=== PATIENT | male | born 1970 | race Caucasian/White ===

== ENCOUNTER 2020-03-03 16:03 | Emergency (ER) | payer MEDICARE, OTHER ==
[~2020-03-03 16:03] MED LIST: AUGMENTIN 875-1 EACH PO; BACTRIM DS TAB1 EACH PO; BENTYL 20MG TAB20 MG PO; FUROSEMIDE20 MG PO; HYDROCODON-ACE1 EAC4 PO; IBU800 MG PO; METOPROLOL SUCC50 MG PO; MONTELUKAST SOD10 MG PO; PERCOCET 5-3251 EACH PO; ULTRAM50 MG PO; VISTARIL50 MG PO; VITAMIN B-121000 MCG PO; ZOFRAN ODT 4 MG4 MG SL
[2020-03-03 18:00] LABS: HEMOGLOBIN 14.8 gm/dl (14.0-17.5); RED BLOOD COUNT 4.89 M/UL (4.20-5.50); WHITE BLOOD COUNT 4.1 K/UL (4.5-11.0)
[2020-03-03 19:05] LABS: HEMOGLOBIN 15.6 gm/dl (14.0-17.5); RED BLOOD COUNT 5.09 M/UL (4.20-5.50); WHITE BLOOD COUNT 4.4 K/UL (4.5-11.0)
[2020-03-03 19:29] LABS: BUN/CREATININE RATIO 21 (0-10)
[2020-03-03] MEDS ORDERED: ENDOCET 5-3251 EACH PO (21:25)
[2020-03-03] MEDS ORDERED: ZOFRAN ODT 4 MG4 MG SL (21:25)
== END 2020-03-03 22:16 | disposition home or self-care (01) ==
LOC: ER1 16:03
PROVIDERS: Emergency Medicine
DX: N20.1 Calculus of ureter (principal); R10.11 Right upper quadrant pain; Z87.442 Personal history of urinary calculi
CPT/HCPCS: 80053; 81001; 83690; 85025; 96374; 96375; 99284; J1170; J1885; J2405; J7030

== ENCOUNTER 2020-05-07 08:11 | Emergency (ER) | payer MEDICARE, OTHER ==
[~2020-05-07 08:11] MED LIST changes: +ENDOCET 5-3251 EACH PO
[2020-05-07 08:43] LABS: HEMOGLOBIN 15.8 gm/dl (14.0-17.5); WHITE BLOOD COUNT 4.2 K/UL (4.5-11.0)
[2020-05-07 09:02] LABS: BUN/CREATININE RATIO 19 (0-10)
== END 2020-05-07 09:55 | disposition home or self-care (01) ==
LOC: ER1 08:11
DX: R10.11 Right upper quadrant pain (principal); R10.31 Right lower quadrant pain; R31.9 Hematuria, unspecified; K21.9 Gastro-esophageal reflux disease without esophagitis; I10 Essential (primary) hypertension
CPT/HCPCS: 80053; 81001; 83690; 85025; 96374; 96375; 99284; J1885; J2270; J2405

== ENCOUNTER 2020-07-17 03:27 | Emergency (ER) | payer MEDICARE, OTHER ==
[2020-07-17 04:33] LABS: HEMOGLOBIN 15.5 gm/dl (14.0-17.5); RED BLOOD COUNT 4.9 M/UL (4.20-5.50); WHITE BLOOD COUNT 6.4 K/UL (4.5-11.0)
[2020-07-17 04:48] LABS: BUN/CREATININE RATIO 9 (0-10)
[2020-07-17] MEDS ORDERED: LODINE CAP 300300 MG PO (06:34)
[2020-07-17] MEDS ORDERED: ZOFRAN ODT 4 MG4 MG PO (06:34)
== END 2020-07-17 09:07 | disposition home or self-care (01) ==
LOC: ER1 03:27
PROVIDERS: Physician Assistant
DX: S30.22XA Contusion of scrotum and testes, initial encounter (principal); K21.9 Gastro-esophageal reflux disease without esophagitis; I10 Essential (primary) hypertension; Z87.891 Personal history of nicotine dependence; W22.8XXA Striking against or struck by other objects, initial encounter
CPT/HCPCS: 76870; 80053; 81001; 85025; 87086; 96372; 96374; 96375; 99284; J2270; J2405

== ENCOUNTER 2020-08-05 15:04 | Emergency (ER) | payer OTHER ==
[~2020-08-05 15:04] MED LIST changes: +LODINE CAP 300300 MG PO; +ZOFRAN ODT 4 MG4 MG PO
[2020-08-05 16:10] LABS: HEMOGLOBIN 15.4 gm/dl (14.0-17.5); RED BLOOD COUNT 4.89 M/UL (4.20-5.50); WHITE BLOOD COUNT 4.8 K/UL (4.5-11.0)
[2020-08-05 16:18] LABS: BUN/CREATININE RATIO 15 (0-10)
[2020-08-05] MEDS ORDERED: CELEBREX100 MG PO (17:25)
== END 2020-08-05 21:45 | disposition home or self-care (01) ==
LOC: ER1 15:04
PROVIDERS: Emergency Medicine
DX: M25.522 Pain in left elbow (principal); I10 Essential (primary) hypertension
CPT/HCPCS: 73080; 80053; 82550; 82553; 83874; 84484; 85025; 93005; 96374; 96375; 96376; 99284; J2270; J2405; Q9967

== ENCOUNTER → 2020-09-25 | Outpatient (CLI) | payer OTHER ==
[~2020-09-25] MED LIST changes: +CELEBREX100 MG PO
[2020-09-25 14:10] LABS: HEMOGLOBIN 12.7 gm/dl (14.0-17.5); RED BLOOD COUNT 4.13 M/UL (4.20-5.50); WHITE BLOOD COUNT 3.5 K/UL (4.5-11.0)
[2020-09-25 14:39] LABS: BUN/CREATININE RATIO 11 (0-10)
[2020-09-26 11:14] LABS: HBSAG SCREEN Negative (Negative); HCV ANTIBODY 0.2 (0.0-0.9)
== END ==
LOC: LAB 13:08
PROVIDERS: Nurse Practitioner Family
DX: F11.20 Opioid dependence, uncomplicated (principal); Z79.899 Other long term (current) drug therapy
CPT/HCPCS: 36415; 80053; 80076; 85027; 86708; 86780; 86803; 87340

== ENCOUNTER 2021-03-17 19:51 | Emergency (ER) | payer MEDICARE, OTHER ==
[2021-03-17 20:20] LABS: HEMOGLOBIN 15.2 gm/dl (14.0-17.5); RED BLOOD COUNT 4.8 M/UL (4.20-5.50); WHITE BLOOD COUNT 5.9 K/UL (4.5-11.0)
[2021-03-17 20:47] LABS: BUN/CREATININE RATIO 12 (0-10)
[2021-03-17] MEDS ORDERED: IBUPROFEN600 MG PO (23:13)
[2021-03-17] MEDS ORDERED: VISTARIL 50 MG50 MG PO (23:13)
== END 2021-03-17 23:23 | disposition home or self-care (01) ==
LOC: ER1 19:51
PROVIDERS: Physician Assistant
DX: R07.89 Other chest pain (principal); I11.0 Hypertensive heart disease with heart failure; I50.9 Heart failure, unspecified; Z87.442 Personal history of urinary calculi
CPT/HCPCS: 71045; 80053; 82550; 82553; 83690; 83874; 84484; 85025; 93005; 96374; 99285; J1885

== ENCOUNTER 2021-09-26 13:18 | Observation (INO) | payer MEDICARE, OTHER ==
[~2021-09-26] VITALS: Ht 170.2 cm; Wt 72.6 kg
[~2021-09-26 13:18] MED LIST changes: +IBUPROFEN600 MG PO; +METOPROLOL SUCC25 MG PO; -METOPROLOL SUCC50 MG PO; +VISTARIL 50 MG50 MG PO
[2021-09-26 13:59] LABS: HEMOGLOBIN 15.1 gm/dl (14.0-17.5); RED BLOOD COUNT 4.85 M/UL (4.20-5.50); WHITE BLOOD COUNT 6.7 K/UL (4.5-11.0)
[2021-09-26 14:35] LABS: BUN/CREATININE RATIO 15 (0-10)
[2021-09-26] MEDS ORDERED: BUPRENORPHIN-N1 EACH SL (17:29)
[2021-09-26] MEDS ORDERED: BUPROPION XL150 MG PO (17:30)
[2021-09-26] MEDS ORDERED: POTASSIUM CHLO10 ME1 PO (17:32)
[2021-09-26] MEDS ORDERED: MULTIVITAMIN1 EACH PO (17:35)
[2021-09-27 06:29] LABS: HEMOGLOBIN 13.3 gm/dl (14.0-17.5); RED BLOOD COUNT 4.44 M/UL (4.20-5.50); WHITE BLOOD COUNT 5.1 K/UL (4.5-11.0)
[2021-09-27 06:54] LABS: BUN/CREATININE RATIO 21 (0-10)
[2021-09-27] MEDS ORDERED: LIDOCAINE PAIN1 EACH TP (10:11)
[2021-09-27] MEDS ORDERED: IBUPROFEN800 MG PO (10:11)
== END 2021-09-27 17:19 | disposition home or self-care (01) ==
LOC: ER1 13:18 → M/S 15:05 → CDU 15:05 → M/S 19:42
PROVIDERS: ADMIT Internal Medicine
DX: R07.89 Other chest pain (principal); I11.0 Hypertensive heart disease with heart failure; I50.9 Heart failure, unspecified; F11.11 Opioid abuse, in remission; F15.11 Other stimulant abuse, in remission; Z72.0 Tobacco use
CPT/HCPCS: ECHO; 36415; 71045; 80048; 80053; 80061; 80307; 82550; 82553; 82607; 83036; 83735; 84439; 84443; 84484; 85025; 85610; 93005; 93306; 96372; 96374; 96375; 96376; 99285; G0378; J1650; J1885; J2270

== ENCOUNTER 2021-10-31 09:57 | Emergency (ER) | payer MEDICARE, OTHER ==
[~2021-10-31 09:57] MED LIST changes: +BUPRENORPHIN-N1 EACH SL; +BUPROPION XL150 MG PO; +IBUPROFEN800 MG PO; +LIDOCAINE PAIN1 EACH TP; +MULTIVITAMIN1 EACH PO; +POTASSIUM CHLO10 ME1 PO
[2021-10-31 11:14] LABS: HEMOGLOBIN 13.7 gm/dl (14.0-17.5); RED BLOOD COUNT 4.42 M/UL (4.20-5.50); WHITE BLOOD COUNT 5.7 K/UL (4.5-11.0)
[2021-10-31 11:37] LABS: BUN/CREATININE RATIO 15 (0-10)
[2021-10-31] MEDS ORDERED: VIBRAMYCIN100 MG PO (12:37)
== END 2021-10-31 12:58 | disposition home or self-care (01) ==
LOC: ER1 09:57
PROVIDERS: Physician Assistant
DX: J18.9 Pneumonia, unspecified organism (principal); R10.816 Epigastric abdominal tenderness; I11.0 Hypertensive heart disease with heart failure; I50.9 Heart failure, unspecified; K21.9 Gastro-esophageal reflux disease without esophagitis; Z87.891 Personal history of nicotine dependence; Z87.442 Personal history of urinary calculi
CPT/HCPCS: 71045; 80053; 82550; 82553; 83690; 84484; 85025; 93005; 96374; 96375; 99284; J2270; J2405